=== PATIENT | female | born 1990 | race American Indian/Alaskan Native ===

== ENCOUNTER 2017-12-30 19:19 | Outpatient (CLI) | payer MEDICAID ==
[2017-12-30] MEDS ORDERED: LACTATED RINGERS 1,000 ML IV ONE (19:25)
[2017-12-30 19:49] VITALS: BP 137/83
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
== END 2017-12-30 19:57 | disposition home or self-care (01) ==
LOC: TRG 19:19 → LD 19:20 → TRG 19:57
PROVIDERS: ATTEND Obstetrics & Gynecology
DX: O47.9 False labor, unspecified (principal); Z3A.00 Weeks of gestation of pregnancy not specified
CPT/HCPCS: 76815

== ENCOUNTER 2017-12-30 20:09 | Emergency (ER) | payer MEDICAID ==
[2017-12-30 20:40] VITALS: BP 122/85
[2017-12-30 22:01] LABS: Basophils % (Auto) 0.5 % (0.0-1.8); Eosinophils % (Auto) 0.1 % (0.0-4.3); Hematocrit 40.5 % (30.3-42.9); Hemoglobin 13.1 gm/dl (10.1-14.3); Lymphocytes % (Auto) 29.9 % (13.4-35.0); Mean Corpuscular HGB Conc 32 % (30-34); Mean Corpuscular Hemoglobin 29 pg (28-32); Mean Corpuscular Volume 89 fl (79-97); Monocytes # (Auto) 0.4 K/mm3 (0.0-0.8); Monocytes % (Auto) 6.3 % (0.0-7.3); Platelet Count 285 K/mm3 (140-440); Red Blood Count 4.53 M/mm3 (3.65-5.03)
[2017-12-30 22:15] LABS: BUN/Creatinine Ratio 14; Blood Urea Nitrogen 10 mg/dL (7-17); Calcium 9.6 mg/dL (8.4-10.2); Hemolysis Index 4
== END 2017-12-30 21:35 | disposition left against medical advice (07) ==
LOC: ED 20:09
DX: R07.9 Chest pain, unspecified (principal); Z53.21 Procedure and treatment not carried out due to patient leaving prior to being seen by health care provider
CPT/HCPCS: 36415; 80048; 84484; 84702; 85025; 86850; 86900; 86901; 93005; 93010

== ENCOUNTER 2019-12-16 14:21 | Emergency (ER) | payer SELFPAY ==
[2019-12-16 14:59] VITALS: BP 133/71
--- NOTE | 2019-12-16 15:01 | Emergency Department Report ---
Stated Complaint: TEST Time Seen by Provider: 12/16/19 14:56 - HPI History of Present Illness: 29 Y O FEMALE PRESENTS FOR NAUSEA IN , SHE STATES SHE HAS BEEN GETTING [facility] X 4 MONTHS STATES 16 WEEKS GESTATION JUST MOVED TO [place] [facility] SOMETHING FOR NAUEA AND REFERRALS FOR OB NO SYMPTOMS, NO VAG D/C - ROS Review of Systems: NOTED HPI - Exam Physical Exam: GENERAL: Alert and oriented x3, no apparent distress, Normal Gait, atraumatic. HEAD: Head is normocephalic and a-traumatic. ABDOMEN: Nontender to palpation on all Quadrants, NO CVA tenderness. SKIN: Warm and dry, No lesions, No ulceration or induration present. MSE screening note: Focused history and physical exam performed. Due to findings the following was ordered: ED Medical Decision Making - Medical Decision Making 29-year-old female who presents for nausea and wanting nausea prescription and OB referral and is never had Referrals given to patient. We will give Reglan for nausea and follow-up with [facility] as soon as possible. Patient denies any vaginal bleeding, abdominal pain or any other symptoms. Vital signs are normal she is to follow-up ED Disposition for MSE Clinical Impression: Nausea/vomiting in Disposition: Z- MED SCREENING EXAM-LEFT Is pt being admited?: No Does the pt Need Aspirin: No Condition: Stable Instructions: Morning Sickness (ED) Additional Instructions: FOLLOW UP WITH OBGYN REFFERED, TAKE NAUSEA MEDS RX Prescriptions: Metoclopramide [Reglan] 10 mg PO TID #60 tab Referrals: [facility] [Provider Group] - 3-5 Days [facility] [Provider Group] - 3-5 Days [facility] [Provider Group] - 3-5 Days Forms: Accompanied Note, Work/School Release Form(ED) Time of Disposition: 15:01
== END 2019-12-16 15:40 | disposition home or self-care (01) ==
LOC: ED 14:21
DX: O21.8 Other vomiting complicating pregnancy (principal); Z3A.16 16 weeks gestation of pregnancy
CPT/HCPCS: 99281

== ENCOUNTER 2019-12-27 22:07 | Emergency (ER) | payer MEDICAID ==
[2019-12-27] MEDS ORDERED: ACETAMINOPHEN 500 MG TAB PO ONE (23:38)
[2019-12-27] MEDS ORDERED: ONDANSETRON 4 MG ODT TAB PO ONE (23:38)
--- NOTE | 2019-12-27 23:38 | Emergency Department Report ---
ED Female HPI - General Chief complaint: Abdominal Pain Stated complaint: VOMITING, ABDOMINAL PAIN(5 WKS PREG) Time Seen by Provider: 12/27/19 23:36 Source: patient Mode of arrival: Ambulatory Limitations: No Limitations - History of Present Illness Initial comments: This is a 29-year-old female who was recently diagnosed with at outside hospital. She has vaginal itching. She has lower abdominal pain with nausea vomiting. Gradual onset of symptoms 2 days ago. Symptoms are mild. No current vaginal bleeding or vaginal discharge. MD Complaint: other (Bilateral lower abdominal pain vaginal itching) -: Gradual, days(s) (2) Severity: mild Quality: cramping, dull Consistency: constant Improves with: none Worsens with: none Are you Now?: Yes - Related Data Previous Rx's Medication Instructions Recorded Last Taken Type Metoclopramide [Reglan] 10 mg PO TID #60 tab 12/16/19 Unknown Rx Allergies Allergy/AdvReac Type Severity Reaction Status Date / Time No Known Allergies Allergy Unverified 12/30/17 19:25 ED Review of Systems ROS: Stated complaint: VOMITING, ABDOMINAL PAIN(5 WKS PREG) Other details as noted in HPI Comment: All other systems reviewed and negative Constitutional: denies: fever, malaise Respiratory: denies: cough Cardiovascular: denies: chest pain ED Past Medical Hx - Past Medical History Previous Medical History?: No - Surgical History Past Surgical History?: No - Social History Smoking Status: Current Every Day Smoker - Medications Home Medications: Home Medications Medication Instructions Recorded Confirmed Last Taken Type Metoclopramide [Reglan] 10 mg PO TID #60 tab 12/16/19 Unknown Rx ED Physical Exam - General Limitations: No Limitations General appearance: alert, in no apparent distress - Head Head exam: Present: atraumatic, normocephalic - Eye Eye exam: Present: normal appearance - ENT ENT exam: Present: mucous membranes moist - Neck Neck exam: Present: normal inspection, full ROM - Respiratory Respiratory exam: Present: normal lung sounds bilaterally. Absent: respiratory distress, wheezes, rales, rhonchi - Cardiovascular Cardiovascular Exam: Present: regular rate, normal rhythm, normal heart sounds. Absent: systolic murmur, diastolic murmur, rubs, gallop - GI/Abdominal GI/Abdominal exam: Present: soft, normal bowel sounds. Absent: distended, tenderness, guarding, rebound - Extremities Exam Extremities exam: Present: normal inspection - Neurological Exam Neurological exam: Present: alert, oriented X3 - Psychiatric Psychiatric exam: Present: normal affect, normal mood - Skin Skin exam: Present: warm, dry, intact, normal color. Absent: rash ED Medical Decision Making - Lab Data Result diagrams: 12/27/19 23:17 12/27/19 23:17 Laboratory Results - last 72 hr 12/27/19 12/27/19 12/27/19 23:17 23:17 23:17 WBC 4.7 RBC 4.35 Hgb 12.4 Hct 38.5 MCV 88 MCH 29 MCHC 32 RDW 14.0 Plt Count 273 Seg Neutrophils % [employer] [facility] Sodium 134 L Potassium 3.7 Chloride 97.8 L Carbon Dioxide 23 Anion Gap 17 BUN 12 Creatinine 0.6 L Estimated GFR > 60 BUN/Creatinine Ratio 20 Glucose 88 Calcium 9.1 Total Bilirubin 0.20 AST 12 ALT 9 Alkaline Phosphatase 44 Total Protein 7.1 Albumin 4.0 Albumin/Globulin Ratio 1.3 HCG, Quant 10134 H - Radiology Data Radiology results: report reviewed Ultrasound revealed early gestational sac with with yolk sac, no pole identified. - Medical Decision Making Ms. Grullon presents with abdominal pain differential diagnosis includes: Ectopic , early intrauterine , missed . There is gestational sac yolk sac likely IUP. However I recommended return to [facility] emergency department in 2 days for repeat ultrasound considering the lack of pole with hCG well above the discriminatory zone. Critical care attestation.: If time is entered above; I have spent that time in minutes in the direct care of this critically ill patient, excluding procedure time. ED Disposition Clinical Impression: Abdominal pain affecting Disposition: DC-01 TO HOME OR SELFCARE Is pt being admited?: No Does the pt Need Aspirin: No Condition: Stable Instructions: Abdominal Pain in (ED) Additional Instructions: Please return to the emergency department in 2 days for repeat ultrasound. Referrals: KRISTIN RUIZ MD [Primary Care Provider] - 3-5 Days
[2019-12-28 00:01] LABS: Hematocrit 38.5 % (30.3-42.9); Hemoglobin 12.4 gm/dl (10.1-14.3); Mean Corpuscular HGB Conc 32 % (30-34); Mean Corpuscular Volume 88 fl (79-97); Platelet Count 273 K/mm3 (140-440); Red Blood Count 4.35 M/mm3 (3.65-5.03)
[2019-12-28 00:13] LABS: Alanine Aminotransferase 9 units/L (7-56); BUN/Creatinine Ratio 20; Blood Urea Nitrogen 12 mg/dL (7-17); Calcium 9.1 mg/dL (8.4-10.2); Hemolysis Index 7
--- NOTE | 2019-12-28 00:48 | Ultrasound Report ---
ULTRASOUND OBSTETRIC Indication: pelvic pain Findings: There is a single gestational sac with yolk sac. No pole identified. The ovaries are normal. There is no free fluid. Impression: Early gestational sac with yolk sac, as above Signer Name: Te Abreu MD Signed: 12/28/2019 12:43 AM Workstation Name: [id number]
[2019-12-28 00:57] LABS: Bacteria,Urine 1+ /HPF (Negative); Bilirubin,Urine NEG (Negative); Blood,Urine NEG (Negative); Color,Urine Yellow (Yellow); Mucus,Urine FEW /HPF; Protein,Urine <15 mg/dL mg/dL (Negative); Urobilinogen,Urine < 2.0 mg/dL (<2.0)
[2019-12-28 01:20] VITALS: BP 114/73
[2019-12-28 05:16] LABS: Basophils % (Manual) 0 % (0.0-1.8); Eosinophils % (Manual) 0 % (0.0-4.3); Monocytes % (Manual) 0 % (0.0-7.3); Total Cells Counted 100
[2019-12-28 05:17] LABS: Ovalocytes Rare; Platelet Estimate Consistent w Auto
== END 2019-12-28 01:20 | disposition home or self-care (01) ==
LOC: ED 22:07
DX: O26.891 Other specified pregnancy related conditions, first trimester (principal); O99.331 Smoking (tobacco) complicating pregnancy, first trimester; Z3A.01 Less than 8 weeks gestation of pregnancy; Z79.899 Other long term (current) drug therapy
CPT/HCPCS: 36415; 76801; 76817; 80053; 81001; 84702; 85007; 85025; Q0162